=== PATIENT | male | born 1975 | race Caucasian/White ===

== ENCOUNTER 2021-10-10 14:50 | Emergency (ER) | payer SELFPAY ==
[~2021-10-10] VITALS: Ht 182.9 cm; Wt 77.1 kg
[2021-10-10 14:51] VITALS: BP 137/86
[2021-10-10] MEDS ORDERED: LIDOCAINE 2% (LOCAL ANESTH.) PF 5ml SDV ONE (15:09)
[2021-10-10] MEDS ORDERED: TETANUS-DIPTH-ACEL PERTUSSIS 0.5ML SYR Tdap IM ONE (15:15)
== END 2021-10-10 15:35 | disposition home or self-care (01) ==
LOC: ER 14:50
DX: S61.012A Laceration without foreign body of left thumb without damage to nail, initial encounter (principal); F17.210 Nicotine dependence, cigarettes, uncomplicated; W26.9XXA Contact with unspecified sharp object(s), initial encounter; Y93.89 Activity, other specified; Y92.89 Other specified places as the place of occurrence of the external cause; Y99.8 Other external cause status
CPT/HCPCS: 12002; 99282; J2001

== ENCOUNTER 2022-03-29 11:16 | Emergency (ER) | payer SELFPAY ==
[~2022-03-29] VITALS: Ht 177.8 cm; Wt 75.0 kg
[2022-03-29] MEDS ORDERED: IBUP800T27 PO (13:25)
[2022-03-29 13:26] VITALS: BP 128/67
[2022-03-29] MEDS ORDERED: IBUPROFEN 800 MG TAB PO ONE (13:30)
== END 2022-03-29 13:58 | disposition home or self-care (01) ==
LOC: ER 11:16
DX: S63.92XA Sprain of unspecified part of left wrist and hand, initial encounter (principal); S63.502A Unspecified sprain of left wrist, initial encounter; F17.210 Nicotine dependence, cigarettes, uncomplicated; Z90.49 Acquired absence of other specified parts of digestive tract; Z79.1 Long term (current) use of non-steroidal anti-inflammatories (NSAID); X50.1XXA Overexertion from prolonged static or awkward postures, initial encounter; Y93.89 Activity, other specified; Y92.89 Other specified places as the place of occurrence of the external cause; Y99.8 Other external cause status
CPT/HCPCS: 73110; 73130